=== PATIENT | female | born 1985 | race Caucasian/White ===

== ENCOUNTER 2019-09-08 00:06 | Observation (INO) | payer OTHER ==
[2019-09-08 00:52] LABS: Basophils # (A) 0.1 k/uL (0-0.2); Basophils % (A) 1 %; Eosinophils # (A) 0.2 k/uL (0-0.7); Eosinophils % (A) 2 %; HCT 48.5 % (34.0-46.0); HGB 15.3 gm/dL (11.4-16.0); Lymphocytes # (A) 3.9 k/uL (1.0-4.8); Lymphocytes % (A) 38 %; MCH 30.6 pg (25.0-35.0); MCHC 31.6 g/dL (31.0-37.0); Mean Platelet Volume 8.3; Monocytes # (A) 0.5 k/uL (0-1.0); Monocytes % (A) 5 %; Neutrophils % (A) 50 %; Platelet Count 244 k/uL (150-450); RBC 5.01 m/uL (3.80-5.40); RDW 13.9 % (11.5-15.5); WBC 10.1 k/uL (3.8-10.6)
[2019-09-08 00:56] LABS: Appearance,Urine Clear (Clear); Bilirubin,Urine Negative (Negative); Blood,Urine Negative (Negative); Color,Urine Yellow; Glucose,Urine (UA) Negative (Negative); Ketones,Urine Negative (Negative); Leukocyte Esterase,Urine Negative (Negative); Nitrite,Urine Negative (Negative); PH, Urine 5.5 (5.0-8.0); Protein,Urine Negative (Negative); Specific Gravity,Urine 1.009 (1.001-1.035); Urobilinogen,Urine <2.0 mg/dL (<2.0)
[2019-09-08 01:06] LABS: ALT 15 U/L (4-34); AST 45 U/L (14-36); African American GFR (CKD) >90 (>60 ml/min/1.73 sqM); Albumin 4.6 g/dL (3.5-5.0); Alkaline Phosphatase 86 U/L (38-126); Anion Gap 11 mmol/L; Blood Urea Nitrogen 9 mg/dL (7-17); Carbon Dioxide 27 mmol/L (22-30); Chloride 109 mmol/L (98-107); Glucose 98 mg/dL (74-99); Non-African American GFR(CKD) >90 (>60 ml/min/1.73 sqM); Potassium 4.1 mmol/L (3.5-5.1); Sodium 147 mmol/L (137-145); Total Bilirubin 0.3 mg/dL (0.2-1.3); Total Protein 7.6 g/dL (6.3-8.2)
[2019-09-08 01:10] LABS: Amphetamine Screen,Urine Not Detected (NotDetected); Barbiturate Screen,Urine Not Detected (NotDetected); Benzodiazepines Screen,Urine Detected (NotDetected); Cocaine Screen,Urine Not Detected (NotDetected); Methadone Screen, Urine Not Detected (NotDetected); Opiate Screen,Urine Not Detected (NotDetected); Oxycodone Screen, Urine Not Detected (NotDetected); Phencyclidine Screen,Urine Not Detected (NotDetected); Tricyclic Antidepressant,Urine Not Detected (NotDetected); Urn Cannabinoid Scrn Detected (NotDetected)
[2019-09-08 01:11] LABS: Alcohol 288 mg/dL
[2019-09-08] MEDS ORDERED: LORazepam 2 MG/ML INJ IV PRN (01:11)
[2019-09-08] MEDS ORDERED: THIAMINE 100 MG/ML 2 ML VIAL IM STA (01:11)
--- NOTE | 2019-09-08 01:36 | ED ---
General Adult HPI - General Chief complaint: Recheck/Abnormal Lab/Rx Stated complaint: Detox Time Seen by Provider: 09/08/19 00:16 Source: patient, RN notes reviewed, old records reviewed Mode of arrival: ambulatory Limitations: no limitations - History of Present Illness Initial comments: 34-year-old female patient presents to ED for evaluation. Patient reports that she drove 3 hours to [facility] in order to enter the program. Patient reports that did not accept her because she was intoxicated. Patient reports that she has no way home. She reports that she drank a pint today. She also reports that they wanted her tested for coronavirus. She denies any symptoms. She denies any physical complaints. Systemic: Pt denies fatigue, fever/chills, rash. Pt denies weakness, night sweats, weight loss. Neuro: Pt denies headache, visual disturbances, syncope or pre-syncope. HEENT: Pt denies ocular discharge or irritation, otalgia, rhinorrhea, pharyngitis or notable lymphadenopathy. Cardiopulmonary: Pt denies chest pain, SOB, heart palpitations, dyspnea on exertion. Abdominal/GI: Pt denies abdominal pain, n/v/d. : Pt denies dysuria, burning w/ urination, frequency/urgency. Denies new onset urinary or bowel incontinence. MSK: Pt denies myalgia, loss of strength or function in extremities. Neuro: Pt denies new onset weakness, paresthesias. - Related Data Allergies Allergy/AdvReac Type Severity Reaction Status Date / Time cefaclor [From Ceclor] Allergy Unknown Verified 09/08/19 00:13 Review of Systems ROS Statement: Those systems with pertinent positive or pertinent negative responses have been documented in the HPI. ROS Other: All systems not noted in ROS Statement are negative. Past Medical History Past Medical History: Seizure Disorder History of Any Multi-Drug Resistant Organisms: None Reported Past Surgical History: Appendectomy Past Psychological History: Anxiety, Bipolar, Depression Smoking Status: Current every day smoker Past Alcohol Use History: Abuse, Heavy Past Drug Use History: Marijuana General Exam - General Exam Comments Initial Comments: Constitutional: NAD, AOX3, Pt has pleasant affect. HEENT: NC/AT, trachea midline, neck supple, no lymphadenopathy. External ears appear normal, without discharge. Mucous membranes moist. EOM intact. There is no scleral icterus. No pallor noted. Cardiopulmonary: RRR, no murmurs, rubs or gallops, no JVD noted. Lungs CTAB in anterior and posterior taylor. No peripheral edema. Abdominal exam: Abdomen soft and non-distended. Abdomen non-tender to palpation in all 4 quadrants. Bowel sounds active in LLQ. No hepatosplenomegaly. No ecchymosis Neuro: CN II-XII grossly intact. No nuchal rigidity. No raccon eyes, no moralez sign. MSK: Full active ROM in upper and lower extremities, 5/5 stregnth. Limitations: no limitations Course Vital Signs 09/08/19 00:08 Temperature 98.1 F Pulse Rate 76 Respiratory 16 Rate Blood Pressure 129/88 O2 Sat by Pulse 97 Oximetry Medical Decision Making - Medical Decision Making 34-year-old female patient presents to ED for evaluation. Patient reports that she drove 3 hours to [facility] in order to enter the program. Patient reports that did not accept her because she was intoxicated. Patient reports that she has no way home. She reports that she drank a pint today. She also reports that they wanted her tested for coronavirus. She denies any symptoms. She denies any physical complaints. Patient also in stable, afebrile. Physical exam did not display acute pathology. Laboratory investigations reveal alcohol to be elevated at 288. Patient will be observed overnight for alcohol intoxication. Case discussed with Dr. Gill. - Lab Data Result diagrams: 09/08/19 00:42 09/08/19 00:42 Lab Results 09/08/19 09/08/19 09/08/19 Range/Units 00:42 00:42 00:42 WBC 10.1 (3.8-10.6) k/uL RBC 5.01 (3.80-5.40) m/uL Hgb 15.3 (11.4-16.0) gm/dL Hct 48.5 H (34.0-46.0) % MCV 97.0 (80.0-100.0) fL MCH 30.6 (25.0-35.0) pg MCHC 31.6 (31.0-37.0) g/dL RDW 13.9 (11.5-15.5) % Plt Count 244 (150-450) k/uL Neutrophils % 50 % Lymphocytes % 38 % Monocytes % 5 % Eosinophils % 2 % Basophils % 1 % Neutrophils # 5.0 (1.3-7.7) k/uL Lymphocytes # 3.9 (1.0-4.8) k/uL Monocytes # 0.5 (0-1.0) k/uL Eosinophils # 0.2 (0-0.7) k/uL Basophils # 0.1 (0-0.2) k/uL Sodium (137-145) mmol/L Potassium (3.5-5.1) mmol/L Chloride (98-107) mmol/L Carbon Dioxide (22-30) mmol/L Anion Gap mmol/L BUN (7-17) mg/dL Creatinine (0.52-1.04) mg/dL Est GFR (CKD-EPI)AfAm (>60 ml/min/1.73 sqM) Est GFR (CKD-EPI)NonAf (>60 ml/min/1.73 sqM) Glucose (74-99) mg/dL Calcium (8.4-10.2) mg/dL Total Bilirubin (0.2-1.3) mg/dL AST (14-36) U/L ALT (4-34) U/L Alkaline Phosphatase (38-126) U/L Total Protein (6.3-8.2) g/dL Albumin (3.5-5.0) g/dL Urine Color Yellow Urine Appearance Clear (Clear) Urine pH 5.5 (5.0-8.0) Ur Specific [place] 1.009 (1.001-1.035) Urine Protein Negative (Negative) Urine Glucose (UA) Negative (Negative) Urine Ketones Negative (Negative) Urine Blood Negative (Negative) Urine Nitrite Negative (Negative) Urine Bilirubin Negative (Negative) Urine Urobilinogen <2.0 (<2.0) mg/dL Ur Leukocyte Esterase Negative (Negative) Urine HCG, Qual Not Detected (Not Detectd) Urine Opiates Screen Not Detected (NotDetected) Ur Oxycodone Screen Not Detected (NotDetected) Urine Methadone Screen Not Detected (NotDetected) Ur Propoxyphene Screen Not Detected (NotDetected) Ur Barbiturates Screen Not Detected (NotDetected) U Tricyclic Antidepress Not Detected (NotDetected) Ur Phencyclidine Scrn Not Detected (NotDetected) Ur Amphetamines Screen Not Detected (NotDetected) U Methamphetamines Scrn Not Detected (NotDetected) U Benzodiazepines Scrn Detected H (NotDetected) Urine Cocaine Screen Not Detected (NotDetected) U Marijuana (THC) Screen Detected H (NotDetected) Serum Alcohol mg/dL 09/08/19 Range/Units 00:42 WBC (3.8-10.6) k/uL RBC (3.80-5.40) m/uL Hgb (11.4-16.0) gm/dL Hct (34.0-46.0) % MCV (80.0-100.0) fL MCH (25.0-35.0) pg MCHC (31.0-37.0) g/dL RDW (11.5-15.5) % Plt Count (150-450) k/uL Neutrophils % % Lymphocytes % % Monocytes % % Eosinophils % % Basophils % % Neutrophils # (1.3-7.7) k/uL Lymphocytes # (1.0-4.8) k/uL Monocytes # (0-1.0) k/uL Eosinophils # (0-0.7) k/uL Basophils # (0-0.2) k/uL Sodium 147 H (137-145) mmol/L Potassium 4.1 (3.5-5.1) mmol/L Chloride 109 H (98-107) mmol/L Carbon Dioxide 27 (22-30) mmol/L Anion Gap 11 mmol/L BUN 9 (7-17) mg/dL Creatinine 0.70 (0.52-1.04) mg/dL Est GFR (CKD-EPI)AfAm >90 (>60 ml/min/1.73 sqM) Est GFR (CKD-EPI)NonAf >90 (>60 ml/min/1.73 sqM) Glucose 98 (74-99) mg/dL Calcium 9.0 (8.4-10.2) mg/dL Total Bilirubin 0.3 (0.2-1.3) mg/dL AST 45 H (14-36) U/L ALT 15 (4-34) U/L Alkaline Phosphatase 86 (38-126) U/L Total Protein 7.6 (6.3-8.2) g/dL Albumin 4.6 (3.5-5.0) g/dL Urine Color Urine Appearance (Clear) Urine pH (5.0-8.0) Ur Specific [place] (1.001-1.035) Urine Protein (Negative) Urine Glucose (UA) (Negative) Urine Ketones (Negative) Urine Blood (Negative) Urine Nitrite (Negative) Urine Bilirubin (Negative) Urine Urobilinogen (<2.0) mg/dL Ur Leukocyte Esterase (Negative) Urine HCG, Qual (Not Detectd) Urine Opiates Screen (NotDetected) Ur Oxycodone Screen (NotDetected) Urine Methadone Screen (NotDetected) Ur Propoxyphene Screen (NotDetected) Ur Barbiturates Screen (NotDetected) U Tricyclic Antidepress (NotDetected) Ur Phencyclidine Scrn (NotDetected) Ur Amphetamines Screen (NotDetected) U Methamphetamines Scrn (NotDetected) U Benzodiazepines Scrn (NotDetected) Urine Cocaine Screen (NotDetected) U Marijuana (THC) Screen (NotDetected) Serum Alcohol 288 H* mg/dL Disposition Clinical Impression: Alcohol intoxication Disposition: ADMITTED IP TO THIS [facility] Condition: Fair Is patient prescribed a controlled substance at d/c from ED?: No Referrals: Nonstaff,Physician [Primary Care Provider] - 1-2 days
[2019-09-08] MEDS ORDERED: NALOXONE 0.4 MG/ML 1 ML VIAL IV PRN (01:41)
[2019-09-08] MEDS: LORazepam 2 MG/ML INJ IV PRN ×3 (02:09→19:56)
[2019-09-08] MEDS: SODIUM CHLORIDE 0.9% 1,000 ML IV SCH ×2 (03:22→19:23)
--- NOTE | 2019-09-08 04:28 | P.HPIM ---
History of Present Illness H&P Date: 09/08/19 Chief Complaint: alcohol intoxication 34 year old female with long history of alcohol dependance and remote history of drug abuse currently on subaxone today, patient went to [facility] for rehab due to alcohol abuse, last time she went there was about 1 year ago and she benefited from that. however, they turned her down due to alcohol intoxication. she admits that she had even more alcohol on her way to the hospital. here she was found to have alcohol level of 288 and was admitted for further care. patient admits that she has been battling alcohol dependance for years and her life has been up and down. she suffers from a lot of anxiety, and has been feeling depressed, hopeless, helpless, lack of energy and disturbed sleep for many years. she has recently established care with PCP who gave her propranolol 2 months ago to help with palpitations and anxiety, and saw a therapist and psych who started her on effexor and buspar about 1-2 weeks ago. she also been taking subaxon for many years now due to history of heroin abuse. she lives with her 8 years old son who means the world to her, and her father. she denies any suicidal thoughts or plans to hurt herself. but does feel hopeless. she is trying to get her life together and thats why she went to [facility] today for help. otherwise, she denies any other medical complaints at this time. Review of Systems Pertinent positives as noted in HPI. All other systems were reviewed and are negative Past Medical History Past Medical History: Seizure Disorder Additional Past Medical History / Comment(s): seizures when detoxing, closed head injuryn (2017), Doctor told her last week to follow up with a manager digital for irregular EKG's History of Any Multi-Drug Resistant Organisms: None Reported Past Surgical History: Appendectomy Past Psychological History: Anxiety, Bipolar, Depression Additional Psychological History / Comment(s): Panic attacks. Smoking Status: Current every day smoker Past Alcohol Use History: Abuse, Heavy Additional Past Alcohol Use History / Comment(s): drinks a pint to a 5th a day. Last drink 09/05 around 2200. Past Drug Use History: Marijuana Additional Drug Use History / Comment(s): Daily marijuana use. - Past Family History Mother Family Medical History: Cancer, Myocardial Infarction ([place]) Additional Family Medical History / Comment(s): mom of lung ca Father Family Medical History: Myocardial Infarction ([place]) Medications and Allergies Home Medications Medication Instructions Recorded Confirmed Type Buprenorphine HCl/Naloxone HCl 0.5 each SL BID 09/08/19 09/08/19 History [Suboxone 8 mg-2 mg Sl Film] Propranolol [Inderal] 20 mg PO TID 09/08/19 09/08/19 History Venlafaxine HCl ER [Effexor Xr] 75 mg PO DAILY 09/08/19 09/08/19 History busPIRone HCL [Buspar] 7.5 mg PO BID 09/08/19 09/08/19 History Allergies Allergy/AdvReac Type Severity Reaction Status Date / Time cefaclor [From [facility]] Allergy Unknown Verified 09/08/19 00:13 Physical Exam Vitals: Vital Signs Temp Pulse Pulse Resp BP BP Pulse Ox 09/08/19 02:39 97.6 F 67 16 98/62 96 09/08/19 02:23 97.9 F 71 16 91/61 95 09/08/19 00:08 98.1 F 76 16 129/88 97 Intake and Output 09/07/19 09/07/19 09/08/19 14:59 22:59 06:59 Other: Weight 58.967 kg Constitutional: No acute distress, conversant, pleasant Eyes: Anicteric sclerae, moist conjunctiva, Pupils equal round reactive to light ENMT: NC/AT Oropharynx clear, no erythema, or exudates Neck: Supple, FROM, no masses, or JVD No carotid bruits No thyromegaly Lungs: Clear to auscultation Clear to percussion Normal respiratory effort, no accessory muscle use Cardiovascular: Heart regular in rate and rhythm, No murmurs, gallops, or rubs No peripheral edema Abdominal: Soft Nontender, no guarding, rebound or rigidity Abdomen moving with respiration Normoactive bowel sounds No hepatomegaly, No splenomegaly No palpable mass No abdominal wall hernia noted Skin: Normal temperature, tone, texture, turgor No induration No subcutaneous nodules No rash, lesions No ulcers Extremities: No digital cyanosis No clubbing Pedal pulses intact and symmetrical Radial pulses intact and symmetrical No calf tenderness Psychiatric: Alert and oriented to person, place and time labile affect fair judgement Neuro Muscles Strength 5/5 in all 4 extremities Sensation to light touch grossly present throughout Cranial nerves II-XII grossly intact No focal sensory deficits Lymphatics: no palpable cervical or supraclavicular , or inguinal lymph nodes Results CBC & Chem 7: 09/08/19 00:42 09/08/19 00:42 Labs: Abnormal Lab Results - Last 24 Hours (Table) 09/08/19 09/08/19 09/08/19 Range/Units 00:42 00:42 00:42 Hct 48.5 H (34.0-46.0) % Sodium 147 H (137-145) mmol/L Chloride 109 H (98-107) mmol/L AST 45 H (14-36) U/L U Benzodiazepines Scrn Detected H (NotDetected) U Marijuana (THC) Screen Detected H (NotDetected) Serum Alcohol 288 H* mg/dL Thrombosis Risk Factor Assmnt - Choose All That Apply Any of the Below Risk Factors Present?: No Other Risk Factors: No Other congenital or acquired thrombophilia - If yes, enter type in comment: No Thrombosis Risk Factor Assessment Level: Very Low Risk Assessment and Plan Assessment: Acute severe alcohol intoxication Major depression Anxiety and panic attacks Tobacco smoking abuse Plan IV fluid hydration Close monitoring for alcohol withdrawal Benzos per CIWA scale Thiamine Resume Effexor and BuSpar Resume Suboxone Nicotine replacement therapy Psych evaluation for depression and panic attacks CODE STATUS: Full code DVT prophylaxis: Mechanical Discussed with: Patient, ER, RN Anticipated length of stay less than [address]: [facility] A total of 75 minutes was spent on the care of this complex patient more than 50% of the time was spent in counseling and care coordination.
[2019-09-08] MEDS: NALOXONE HCL SUBLINGUAL SCH ×2 (04:45→21:20)
[2019-09-08] MEDS: BUPRENORPHINE HCL SUBLINGUAL SCH ×2 (04:45→21:20)
[2019-09-08] MEDS: [UNRECOGNIZED DRUG - OTHER] SUBLINGUAL SCH ×2 (04:45→21:20)
[2019-09-08] MEDS ORDERED: ONDANSETRON 4 MG TAB PO PRN (04:58)
[2019-09-08] MEDS ORDERED: FAMOTIDINE 20 MG TAB PO SCH (09:00)
[2019-09-08] MEDS: NICOTINE 21MG/24HR PATCH TRANSDERM SCH (09:40)
[2019-09-08] MEDS: busPIRone HCl 5 MG TAB PO SCH ×2 (09:40→21:20)
[2019-09-08] MEDS: PROPRANOLOL 20 MG TAB PO SCH ×3 (09:46→22:09)
[2019-09-08] MEDS: VENLAFAXINE HCL ER 75 MG CAP PO SCH (09:46)
[2019-09-08] MEDS: PANTOPRAZOLE 40 MG TABLET PO SCH (09:49)
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
--- NOTE | 2019-09-08 15:13 | P.PN ---
Subjective Progress Note Date: 09/08/19 (delayed charting seen at 0830) Principal diagnosis: ETOH intoxication Patient is a 34 yo CF with a history of prior seizures been detoxing from alcohol, closed head injury, and anxiety who presented at the direction of [facility] secondary to alcohol intoxication. Apparently she had been seeking treatment at [facility] for alcohol abuse but she arrived intoxicated and they told her to present to the emergency department. On arrival here her vital signs were within normal limits. Laboratory analysis showed a mildly elevated AST at 45, sodium 147, and alcohol level of 288. They're concerned about impending withdrawal due to her history of alcohol abuse and prior withdrawal seizure. She therefore was admitted for alcohol intoxication with impending withdrawal. She was started on IV fluids. Patient seen and examined at bedside. She reports she really wants to go to [facility] to get help. She reports that she has had withdrawal seizures in the past, but has never required ICU level care for her alcohol withdrawal. At this point in time she is feeling slightly nauseous, tremulous, and anxious. Objective - Vital Signs Vital signs: Vital Signs Temp 98.0 F 09/08/19 11:59 Pulse 65 09/08/19 11:59 Resp 16 09/08/19 11:59 BP 93/54 09/08/19 11:59 Pulse Ox 98 09/08/19 11:59 Intake & Output 09/07/19 09/08/19 09/08/19 18:59 06:59 18:59 Intake Total 300 Balance 300 Weight 58.967 kg Intake: Intake, IV Titration 300 Amount Sodium Chloride 0.9% 1, 300 000 ml @ 75 mls/hr IV . [id number] [facility] Rx#:[id number] Other: # Voids 1 - Exam General: non toxic, no distress, appears at stated age Derm: warm, dry Head: atraumatic, normocephalic, symmetric Eyes: EOMI, no lid lag, anicteric sclera Mouth: no lip lesion, mucus membranes moist Cardiovascular: S1S2 reg, no murmur, positive posterior tibial pulse bilateral, Lungs: CTA bilateral, no rhonchi, no rales , no accessory muscle use Abdominal: soft, nontender to palpation, no guarding, no appreciable organomegaly Ext: no gross muscle atrophy, no edema, no contractures Neuro: CN II-XI grossly intact, no focal neuro deficits Psych: Alert, oriented, appears anxious - Labs CBC & Chem 7: 09/08/19 00:42 09/08/19 00:42 Labs: Abnormal Lab Results - Last 24 Hours (Table) 09/08/19 09/08/19 09/08/19 Range/Units 00:42 00:42 00:42 Hct 48.5 H (34.0-46.0) % Sodium 147 H (137-145) mmol/L Chloride 109 H (98-107) mmol/L AST 45 H (14-36) U/L U Benzodiazepines Scrn Detected H (NotDetected) U Marijuana (THC) Screen Detected H (NotDetected) Serum Alcohol 288 H* mg/dL Assessment and Plan Assessment: Alcohol withdrawal prior alcohol intoxication -Continue with CIWA -Start Librium -Thiamine, folic acid -Multivitamin -Consult social work -Home to discharge to [facility]. Major depression -Psych recommendations appreciated. No need for inpatient psychiatric treatment at this point in time -Continue Effexor and BuSpar History of opiate use disorder -In remission -Continue Suboxone Tobacco abuse -Cessation -Nicotine replacement DVT prophylaxis: SCDs Discussed with: patient, nursing Anticipated discharge: in AM Anticipated discharge place: home vs [facility] A total of 25 minutes was spent on the care of this complex patient more than 50 % of the time was spent in counseling and care coordination.
[2019-09-08] MEDS: THIAMINE 100 MG TAB PO SCH (18:04)
[2019-09-08] MEDS: ARIPiprazole 5 MG TAB PO SCH (19:23)
[2019-09-09] MEDS: SODIUM CHLORIDE 0.9% 1,000 ML IV SCH ×2 (03:58→20:29)
[2019-09-09 06:46] LABS: ALT 11 U/L (4-34); AST 37 U/L (14-36); African American GFR (CKD) >90 (>60 ml/min/1.73 sqM); Albumin 3.5 g/dL (3.5-5.0); Alkaline Phosphatase 71 U/L (38-126); Anion Gap 3 mmol/L; Blood Urea Nitrogen 7 mg/dL (7-17); Calcium 8.9 mg/dL (8.4-10.2); Carbon Dioxide 28 mmol/L (22-30); Chloride 106 mmol/L (98-107); Glucose 88 mg/dL (74-99); Non-African American GFR(CKD) >90 (>60 ml/min/1.73 sqM); Potassium 4.1 mmol/L (3.5-5.1); Sodium 137 mmol/L (137-145); Total Bilirubin 0.7 mg/dL (0.2-1.3); Total Protein 5.9 g/dL (6.3-8.2)
[2019-09-09] MEDS: PANTOPRAZOLE 40 MG TABLET PO SCH (08:52)
[2019-09-09] MEDS: busPIRone HCl 5 MG TAB PO SCH ×2 (08:52→21:20)
[2019-09-09] MEDS: THIAMINE 100 MG TAB PO SCH ×2 (08:52→17:44)
[2019-09-09] MEDS: [UNRECOGNIZED DRUG - OTHER] SUBLINGUAL SCH ×2 (08:53→21:21)
[2019-09-09] MEDS: BUPRENORPHINE HCL SUBLINGUAL SCH ×2 (08:53→21:21)
[2019-09-09] MEDS: NICOTINE 21MG/24HR PATCH TRANSDERM SCH (08:53)
[2019-09-09] MEDS: NALOXONE HCL SUBLINGUAL SCH ×2 (08:53→21:21)
[2019-09-09] MEDS: ARIPiprazole 5 MG TAB PO SCH (08:53)
[2019-09-09] MEDS: VENLAFAXINE HCL ER 75 MG CAP PO SCH (08:54)
[2019-09-09] MEDS: PROPRANOLOL 20 MG TAB PO SCH ×3 (08:54→21:19)
[2019-09-09] MEDS: LORazepam 2 MG/ML INJ IV PRN ×3 (08:55→20:27)
[2019-09-09] MEDS: FOLIC ACID 1 MG TAB PO SCH (10:41)
--- NOTE | 2019-09-09 15:36 | P.PN ---
Subjective Progress Note Date: 09/09/19 (delayed charting seen at 0930) Principal diagnosis: ETOH intoxication Patient is a 34 yo CF with a history of prior seizures been detoxing from alcohol, closed head injury, and anxiety who presented at the direction of [facility] secondary to alcohol intoxication. Apparently she had been seeking treatment at [facility] for alcohol abuse but she arrived intoxicated and they told her to present to the emergency department. On arrival here her vital signs were within normal limits. Laboratory analysis showed a mildly elevated AST at 45, sodium 147, and alcohol level of 288. They're concerned about impending withdrawal due to her history of alcohol abuse and prior withdrawal seizure. She therefore was admitted for alcohol intoxication with impending withdrawal. She was started on IV fluids. She did have increasing CIWA scores requiring ativan and was started on librium on 09/07. Patient seen and examined at bedside. He States She'll Soon As [facility] Be lieves Only Option for Her. She States That Her Withdrawal Feels Better Than Yesterday. No Nausea No Vomiting No Tremors. No Chest Pain or Shortness of Breath. We Discussed That We Will Attempt to Help Her Get Information for [facility] to See If She Can Be Accommodated. She Was Made Aware That Her Covid Testing Is Negative. I Expressed Her That Should [facility] Not Be Able to Accept Her Case We Will Detox from the Hospital and Then She Will Go Home. Objective - Vital Signs Vital signs: Vital Signs Temp 98.0 F 09/09/19 13:00 Pulse 81 09/09/19 13:00 Resp 16 09/09/19 13:00 BP 106/55 09/09/19 13:00 Pulse Ox 95 09/09/19 13:00 Intake & Output 09/08/19 09/09/19 09/09/19 18:59 06:59 18:59 Intake Total 600 1590 525 Balance 600 1590 525 Intake: Intake, IV Titration 600 900 525 Amount Sodium Chloride 0.9% 1, 600 900 525 000 ml @ 75 mls/hr IV . [id number] [facility] Rx#:[id number] Oral 690 Other: Voiding Method Toilet Toilet # Voids 1 1 1 - Exam General: non toxic, no distress, appears at stated age Derm: warm, dry Head: atraumatic, normocephalic, symmetric Eyes: EOMI, no lid lag, anicteric sclera Mouth: no lip lesion, mucus membranes moist Cardiovascular: S1S2 reg, no murmur, positive posterior tibial pulse bilateral, Lungs: CTA bilateral, no rhonchi, no rales , no accessory muscle use Abdominal: soft, nontender to palpation, no guarding, no appreciable organomegaly Ext: no gross muscle atrophy, no edema, no contractures Neuro: CN II-XI grossly intact, no focal neuro deficits Psych: Alert, oriented, appears anxious - Labs CBC & Chem 7: 09/08/19 00:42 09/09/19 05:08 Labs: Abnormal Lab Results - Last 24 Hours (Table) 09/09/19 Range/Units 05:08 AST 37 H (14-36) U/L Total Protein 5.9 L (6.3-8.2) g/dL Assessment and Plan Assessment: Alcohol withdrawal prior alcohol intoxication -Continue with CIWA -Librium -Thiamine, folic acid -Multivitamin -social work recs appreciated: [facility] Intake on 09/15. Major depression -Psych recommendations appreciated. No need for inpatient psychiatric treatment at this point in time -Continue Effexor and BuSpar History of opiate use disorder -In remission -Continue Suboxone Tobacco abuse -Cessation -Nicotine replacement DVT prophylaxis: SCDs Discussed with: patient, nursing Anticipated discharge: in AM Anticipated discharge place: home A total of 25 minutes was spent on the care of this complex patient more than 50% of the time was spent in counseling and care coordination.
[2019-09-10] MEDS: LORazepam 2 MG/ML INJ IV PRN (03:03)
[2019-09-10] MEDS: FOLIC ACID 1 MG TAB PO SCH (08:12)
[2019-09-10] MEDS: busPIRone HCl 5 MG TAB PO SCH ×2 (08:12→21:14)
[2019-09-10] MEDS: NICOTINE 21MG/24HR PATCH TRANSDERM SCH (08:12)
[2019-09-10] MEDS: SODIUM CHLORIDE 0.9% 1,000 ML IV SCH ×2 (08:13→21:13)
[2019-09-10] MEDS: VENLAFAXINE HCL ER 75 MG CAP PO SCH (08:13)
[2019-09-10] MEDS: ARIPiprazole 5 MG TAB PO SCH (08:13)
[2019-09-10] MEDS: PROPRANOLOL 20 MG TAB PO SCH ×3 (08:13→21:14)
[2019-09-10] MEDS: THIAMINE 100 MG TAB PO SCH ×2 (08:13→15:39)
[2019-09-10] MEDS: PANTOPRAZOLE 40 MG TABLET PO SCH (08:13)
[2019-09-10] MEDS ORDERED: LORazepam 2 MG/ML INJ IV PRN ×2 (09:40)
[2019-09-10] MEDS: NALOXONE HCL SUBLINGUAL SCH ×2 (10:09→21:14)
[2019-09-10] MEDS: [UNRECOGNIZED DRUG - OTHER] SUBLINGUAL SCH ×2 (10:09→21:14)
[2019-09-10] MEDS: BUPRENORPHINE HCL SUBLINGUAL SCH ×2 (10:09→21:14)
--- NOTE | 2019-09-10 13:35 | P.CON ---
Consult Note - . Consult date: 09/10/19 Assessment/Plan:: Clinical Problems: Alcohol withdrawal, alcohol use disorder severe, opiate use disorder on agonist therapy, unspecified depressive disorder Interim history:, Reviewed the medical record and interviewed the patient. She is a 34-year-old single female admitted to medicine unit for further management of alcohol withdrawal. The hospitalist initially consulted medicine on 09/08/2019 for alcohol contact intoxication and mood instability. Dr. Cross completed the consult and diagnosed her with a unspecified bipolar disorder, alcohol use disorder, opiate use disorder and rule out PTSD. He recommended to continue with the alcohol withdrawal protocol and continue her outpatient psychotropic medications-Effexor 75 mg daily and BuSpar 7.5 mg twice a day. He recommended to add Abilify 5 mg for "mood stabilization and bipolar disorder." The patient was focused on subjective complaints of anxiety. She repeatedly requested "something" for anxiety and alleged that her current medications including the Abilify, Effexor and BuSpar her ineffective and treating her anxiety. She described persistent anxiety that fluctuates in intensity that she is unable to control. She maintained that she has minimal alcohol withdrawal symptoms and argued against my suggestion that her anxiety related to her alcohol use and alcohol withdrawal. She is depressed but denied hopelessness, helplessness or worthlessness. She denied having thoughts of or suicide. She denied experiencing obsessions or compulsions. She alleged she has panic attacks but the duration of the symptoms are not consistent with a panic attack. She denied such psychotic symptoms since hallucinations, paranoia or thought disturbances. She has been abstinence from heroin since he started Suboxone. She denied use of other drugs to get high, help her sleep or change her mood. She is enrolled with community support services in [place] for outpatient mental health services. She remains interested in residential substance abuse treatment. Mental status exam: She presented as a somewhat disheveled-appearing middle-aged female who was pleasant on approach. She made eye contact and attended the interview. She had no prominent physical abnormalities. She had a blunted but bright facial expression. She showed no abnormality of psychomotor activity. Her speech was spontaneous with normal rate, rhythm and volume. Affect was traumatic but appropriate. She denied suicidal ideation or wishes. She denied homicidal ideation. She denied feeling hopeless, helpless or worthless. She ruminated about subjective anxiety but did not express ideas reference, paranoid ideation or delusions. Her thinking was concrete but his associations were coherent, logical and goal directed. Assessment: She is a 34-year-old single female with a history of substance abuse disorders. [place] referred her to the [facility] where she presented acutely intoxicated and seeking residential alcohol treatment. Her history is significant for both alcohol use disorder as well as an opiate use disorder. She alleges she has been abstinent from heroin since she started Suboxone for the treatment of the opiate use disorder. Her primary complaint was subjective anxiety symptoms unrelieved by current medication regimen. I suspect that the anxiety is related to her chronic substance abuse and underlying personality issues. I do not recommended prescribing her benzodiazepines other than for acute alcohol withdrawal symptoms. Plan: There are no indication for transferred to this psychiatric unit. She should follow through with her plan to obtain admission to a residential substance abuse treatment program. She can follow-up with [facility] in [place]. Continue psychotropic medications.
[2019-09-10] MEDS: chlordiazePOXIDE 5 MG CAPSULE PO SCH ×2 (15:39→21:14)
--- NOTE | 2019-09-10 17:01 | P.PN ---
Subjective Progress Note Date: 09/10/19 (delayed charting seen at 0945) Principal diagnosis: ETOH intoxication Patient is a 34 yo CF with a history of prior seizures been detoxing from alcohol, closed head injury, and anxiety who presented at the direction of [facility] secondary to alcohol intoxication. Apparently she had been seeking treatment at [facility] for alcohol abuse but she arrived intoxicated and they told her to present to the emergency department. On arrival here her vital signs were within normal limits. Laboratory analysis showed a mildly elevated AST at 45, sodium 147, and alcohol level of 288. They're concerned about impending withdrawal due to her history of alcohol abuse and prior withdrawal seizure. She therefore was admitted for alcohol intoxication with impending withdrawal. She was started on IV fluids. She did have increasing CIWA scores requiring ativan and was started on librium on 09/07. She had improved in her CIWA scores on 09/08. She was doing well. She reached out to [facility] on 09/08 and was told that they could accommodate her on 09/15. Patient seen and examined at bedside. She is upset and crying. She claims that she was up adn hallucinating all night, anxious up (per CIWA scale documentation no hallucinations). She then reports that she has had severe anxiety for the last 3 months and that she has only been out of bed 3 days. She states that her father is upset that she cannot help take care of her 8 year old son. I explained that she has no other withdrawal signs and that maybe she is having adverse reactions to the librium. I also acknowledged that I felt that she should come off benzos as soon as able due to hx of opaite addiction and now Alcohol addiction. She was in agreement. I asked if she will return to live with her father and she stated yes. She would not answer my question as to if he had a lock box for her medications and dispensed her medications. She states that she has had a prior mental health admission in the past. She expresses that she was out of it when the psychiatrist was here the last time and that she needs help as her other medications for anxiety are not working at home. Objective - Vital Signs Vital signs: Vital Signs Temp 98.0 F 09/10/19 13:00 Pulse 72 09/10/19 13:00 Resp 16 09/10/19 13:00 BP 164/80 09/10/19 15:59 Pulse Ox 97 09/10/19 13:00 Intake & Output 09/09/19 09/10/19 09/10/19 18:59 06:59 18:59 Intake Total 525 1050 75 Balance 525 1050 75 Intake: Intake, IV Titration 525 600 75 Amount Sodium Chloride 0.9% 1, 525 600 75 000 ml @ 75 mls/hr IV . [id number] [facility] Rx#:[id number] Oral 450 Other: Voiding Method Toilet Toilet Toilet # Voids 1 1 - Exam General: non toxic, no distress, appears at stated age Derm: warm, dry Head: atraumatic, normocephalic, symmetric Eyes: EOMI, no lid lag, anicteric sclera Mouth: no lip lesion, mucus membranes moist Cardiovascular: S1S2 reg, no murmur, positive posterior tibial pulse bilateral, Lungs: CTA bilateral, no rhonchi, no rales , no accessory muscle use Abdominal: soft, nontender to palpation, no guarding, no appreciable organomegaly Ext: no gross muscle atrophy, no edema, no contractures Neuro: CN II-XI grossly intact, no focal neuro deficits Psych: Alert, oriented, appears anxious - Labs CBC & Chem 7: 09/08/19 00:42 09/09/19 05:08 Assessment and Plan Assessment: Alcohol withdrawal prior alcohol intoxication -Continue with CIWA with ativan at decreased dose -Librium decreased by 50% -Thiamine, folic acid -Multivitamin -social work recs appreciated: [facility] Intake on 09/15. -D/W patient anticipated discharge of 09/10 and that she will need a safe place to stay until 09/15. I asked her to reach out to her dad. Anxiety with Major depression -Psych recommendations appreciated. Ask for re-eval to make sure that she is safe for discharge and medications are correct. -Continue Effexor and BuSpar History of opiate use disorder -In remission -Continue Suboxone ? transition from suboxone to naltrexone Tobacco abuse -Cessation -Nicotine replacement DVT prophylaxis: SCDs Discussed with: patient, nursing Anticipated discharge: in AM Anticipated discharge place: home A total of 25 minutes was spent on the care of this complex patient more than 50% of the time was spent in counseling and care coordination.
[2019-09-10] MEDS: NICOTINE POLACRILEX 2 MG GUM BUCCAL PRN (17:40)
[2019-09-11] MEDS ORDERED: diphenhydrAMINE 25 MG CAP PO STA ×2 (01:40→21:50)
[2019-09-11] MEDS: THIAMINE 100 MG TAB PO SCH ×2 (08:20→17:12)
[2019-09-11] MEDS: FOLIC ACID 1 MG TAB PO SCH (08:20)
[2019-09-11] MEDS: chlordiazePOXIDE 5 MG CAPSULE PO SCH ×2 (08:20→20:59)
[2019-09-11] MEDS: PANTOPRAZOLE 40 MG TABLET PO SCH (08:20)
[2019-09-11] MEDS: NICOTINE 21MG/24HR PATCH TRANSDERM SCH (08:21)
[2019-09-11] MEDS: [UNRECOGNIZED DRUG - OTHER] SUBLINGUAL SCH ×2 (08:59→20:59)
[2019-09-11] MEDS: BUPRENORPHINE HCL SUBLINGUAL SCH ×2 (08:59→20:59)
[2019-09-11] MEDS: busPIRone HCl 5 MG TAB PO SCH ×2 (08:59→20:59)
[2019-09-11] MEDS: NALOXONE HCL SUBLINGUAL SCH ×2 (08:59→20:59)
[2019-09-11] MEDS: ARIPiprazole 5 MG TAB PO SCH (08:59)
[2019-09-11] MEDS: VENLAFAXINE HCL ER 75 MG CAP PO SCH (08:59)
[2019-09-11] MEDS: PROPRANOLOL 20 MG TAB PO SCH ×3 (08:59→20:59)
[2019-09-11] MEDS: SODIUM CHLORIDE 0.9% 1,000 ML IV SCH (10:55)
--- NOTE | 2019-09-11 12:01 | P.PN ---
Subjective Progress Note Date: 09/11/19 Patient is a 34 yo CF with a history of prior seizures been detoxing from alcohol, closed head injury, and anxiety who presented at the direction of [facility] secondary to alcohol intoxication. Apparently she had been seeking treatment at [facility] for alcohol abuse but she arrived intoxicated and they told her to present to the emergency department. On arrival here her vital signs were within normal limits. Laboratory analysis showed a mildly elevated AST at 45, sodium 147, and alcohol level of 288. They're concerned about impending withdrawal due to her history of alcohol abuse and prior withdrawal seizure. She therefore was admitted for alcohol intoxication with impending withdrawal. She was started on IV fluids. She did have increasing CIWA scores requiring ativan and was started on librium on 09/07. She had improved in her CIWA scores on 09/08. She was doing well. She reached out to [facility] on 09/08 and was told that they could accommodate her on 09/15. 09/11/2019 Patient feels well today, she still has complains of hallucinations. She denies chest pain or abdominal pain. She denies nausea or vomiting. She continues to require Librium Objective - Vital Signs Vital signs: Vital Signs Temp 97.8 F 09/11/19 05:00 Pulse 73 09/11/19 05:00 Resp 18 09/11/19 05:00 BP 124/88 09/11/19 05:00 Pulse Ox 99 09/11/19 05:00 Intake & Output 09/10/19 09/11/19 09/11/19 18:59 06:59 18:59 Intake Total 75 Balance 75 Intake: Intake, IV Titration 75 Amount Sodium Chloride 0.9% 1, 75 000 ml @ 75 mls/hr IV . [id number] [facility] Rx#:[id number] Other: Voiding Method Toilet Toilet Toilet # Voids 2 - Exam General: non toxic, no distress, appears at stated age Derm: warm, dry Head: atraumatic, normocephalic, symmetric Eyes: EOMI Mouth: no lip lesion Cardiovascular: S1S2 reg, no murmur, positive posterior tibial pulse bilateral, Lungs: CTA bilateral, no rhonchi, no rales , no accessory muscle use Abdominal: soft, nontender to palpation, no guarding, no appreciable organomegaly Ext: no gross muscle atrophy, no edema, no contractures Neuro: CN II-XI grossly intact, no focal neuro deficits Psych: Alert, oriented, appears anxious - Labs CBC & Chem 7: 09/08/19 00:42 09/09/19 05:08 Assessment and Plan Plan: Alcohol withdrawal prior alcohol intoxication -Continue with CIWA with ativan at decreased dose -Librium decreased to 5 mg twice a day today -Thiamine, folic acid -Multivitamin -social work recs appreciated: [facility] Intake on 09/15. Anxiety with Major depression -Psych recommendations appreciated. -Continue Effexor and BuSpar History of opiate use disorder -In remission -Continue Suboxone ? transition from suboxone to naltrexone Tobacco abuse -Cessation -Nicotine replacement DVT prophylaxis: SCDs Discussed with: patient, nursing Anticipated discharge: Home tomorrow Anticipated discharge place: home
[2019-09-11] MEDS: NICOTINE POLACRILEX 2 MG GUM BUCCAL PRN ×2 (14:27→19:13)
[2019-09-12] MEDS: SODIUM CHLORIDE 0.9% 1,000 ML IV SCH (00:27)
[2019-09-12 05:28] VITALS: BP 108/70; PULSE 70; RESP 16; TEMP 97.7
[2019-09-12] MEDS: NICOTINE 21MG/24HR PATCH TRANSDERM SCH (08:01)
[2019-09-12] MEDS: ARIPiprazole 5 MG TAB PO SCH (08:02)
[2019-09-12] MEDS: busPIRone HCl 5 MG TAB PO SCH (08:02)
[2019-09-12] MEDS: THIAMINE 100 MG TAB PO SCH (08:02)
[2019-09-12] MEDS: PANTOPRAZOLE 40 MG TABLET PO SCH (08:02)
[2019-09-12] MEDS: PROPRANOLOL 20 MG TAB PO SCH (08:03)
[2019-09-12] MEDS: FOLIC ACID 1 MG TAB PO SCH (08:03)
[2019-09-12] MEDS: chlordiazePOXIDE 5 MG CAPSULE PO SCH (08:03)
[2019-09-12] MEDS: VENLAFAXINE HCL ER 75 MG CAP PO SCH (08:04)
[2019-09-12] MEDS: NALOXONE HCL SUBLINGUAL SCH (09:21)
[2019-09-12] MEDS: [UNRECOGNIZED DRUG - OTHER] SUBLINGUAL SCH (09:21)
[2019-09-12] MEDS: BUPRENORPHINE HCL SUBLINGUAL SCH (09:21)
--- NOTE | 2019-09-12 16:46 | P.DS ---
Providers Date of admission: 09/08/19 01:57 Expected date of discharge: 09/12/19 Attending physician: Adele Stewart MD Consults: 09/08/19 04:16 Consult Physician Routine Consulting Provider: Erich Dacosta Consult Reason/Comments: depression, panic attacks Do you want consulting provider notified?: Yes, Notify in am Primary care physician: Physician Nonstaff Hospital Course: Discharge Diagnosis: Alcohol withdrawal prior alcohol intoxication Anxiety and depression Opiate use disorder in remission Tobacco abuse Hospital Course: Patient is a 34 yo CF with a history of prior seizures been detoxing from alcohol, closed head injury, and anxiety who presented at the direction of [facility] secondary to alcohol intoxication. Apparently she had been seeking treatment at [facility] for alcohol abuse but she arrived intoxicated and they told her to present to the emergency department. On arrival here her vital signs were within normal limits. Laboratory analysis showed a mildly elevated AST at 45, sodium 147, and alcohol level of 288. They're concerned about impending withdrawal due to her history of alcohol abuse and prior withdrawal seizure. She therefore was admitted for alcohol intoxication with impending withdrawal. She was started on IV fluids. She did have increasing CIWA scores requiring ativan and was started on librium on 09/07. She had improved in her CIWA scores on 09/08. She was doing well. She reached out to [facility] on 09/08 and was told that they could accommodate her on 09/15. She was detoxed in the hospital and discharged in stable condition. She was seen by psychiatry on 2 different occasions and was started on Abilify and addition to her prior medications. She was discharged home in stable condition with no evidence of active alcohol withdrawal. Patient seen and examined at bedside. Feeling well today. Wanting to go home. No nausea, vomiting, diarrhea, chest pain, or shortness of breath. Feels as though her anxiety is better managed. Plans on following with [facility]. Vital signs reviewed and stable. General: non toxic, no distress, appears at stated age Derm: warm, dry Head: atraumatic, normocephalic, symmetric Eyes: EOMI, no lid lag, anicteric sclera Mouth: no lip lesion, mucus membranes moist Cardiovascular: S1S2 reg, no murmur, positive posterior tibial pulse bilateral, Lungs: CTA bilateral, no rhonchi, no rales , no accessory muscle use Abdominal: soft, nontender to palpation, no guarding, no appreciable organomegaly Ext: no gross muscle atrophy, no edema, no contractures Neuro: CN II-XI grossly intact, no focal neuro deficits Psych: Alert, oriented, appropriate affect A total of 25 minutes of time were spent preparing this complex discharge summary . Patient Condition at Discharge: Stable Plan - Discharge Summary Discharge Rx Participant: No New Discharge Prescriptions: New ARIPiprazole [Abilify] 5 mg PO HS #30 tab Continue Buprenorphine HCl/Naloxone HCl [Suboxone 8 mg-2 mg Sl Film] 0.5 each SL BID busPIRone HCL [Buspar] 7.5 mg PO BID Venlafaxine HCl ER [Effexor XR] 75 mg PO DAILY Propranolol [Inderal] 20 mg PO TID Multivitamins, Thera [Multivitamin (formulary)] 1 tab PO DAILY Discharge Medication List Buprenorphine HCl/Naloxone HCl [Suboxone 8 mg-2 mg Sl Film] 0.5 each SL BID 09/08/19 [History] Multivitamins, Thera [Multivitamin (formulary)] 1 tab PO DAILY 09/08/19 [History] Propranolol [Inderal] 20 mg PO TID 09/08/19 [History] Venlafaxine HCl ER [Effexor XR] 75 mg PO DAILY 09/08/19 [History] busPIRone HCL [Buspar] 7.5 mg PO BID 09/08/19 [History] ARIPiprazole [Abilify] 5 mg PO HS #30 tab 09/12/19 [Rx] Follow up Appointment(s)/Referral(s): Nonstaff,Physician [Primary Care Provider] - 1-2 days Patient Instructions/Handouts: Aripiprazole (By mouth), Alcohol Intoxication (DC) Activity/Diet/Wound Care/Special Instructions: Activity: as tolerated Diet: regular Special Instructions: Keep appointment with [facility] for September 15 Discharge Disposition: HOME SELF-CARE
== END 2019-09-12 11:22 | disposition home or self-care (01) ==
LOC: EC 00:06 → 5NMEDONC 01:57
PROVIDERS: ADMIT Internal Medicine; ATTEND Internal Medicine
DX: F10.230 Alcohol dependence with withdrawal, uncomplicated (principal); Y90.8 Blood alcohol level of 240 mg/100 ml or more; R44.3 Hallucinations, unspecified; F11.11 Opioid abuse, in remission; Z87.820 Personal history of traumatic brain injury; R56.9 Unspecified convulsions; F41.9 Anxiety disorder, unspecified; F31.9 Bipolar disorder, unspecified; F17.200 Nicotine dependence, unspecified, uncomplicated; F41.0 Panic disorder [episodic paroxysmal anxiety]; Z80.1 Family history of malignant neoplasm of trachea, bronchus and lung; Z82.49 Family history of ischemic heart disease and other diseases of the circulatory system; Z79.899 Other long term (current) drug therapy; Z88.1 Allergy status to other antibiotic agents
CPT/HCPCS: 96376 ×2; 96361 ×3; 96372; 96374; 99285; 36415; 80053 ×2; 85025; 81003; 81025; 80306; G0378 ×5; G0480; U0003; S4990 ×5; J2060 ×3; J3411; 80320